=== PATIENT | female | born 1960 | race Caucasian/White ===

== ENCOUNTER 2025-06-01 14:32 | Outpatient (REF) | payer OTHER, SELFPAY ==
--- OUTSIDE RECORDS SUMMARY | 2023-12-04 03:30 | XMS_ITS | Continuity of Care Document ---
Author Organization [facility] Address [address] [place] [address] Dr [address] [place] [address] Phone Care Team Providers Care Soil Fertility Specialist Name Role Phone Peter GALLEGOS, PARVEEN, Will DOW Unavailable U navailable Procedures Procedure Date Offic Cons New/estab Mod-hi 60- CT & [place] Surgical Stockings Juxlite Knee 024 Duplex Scan-extrem Veins; Comp- CT & [place] Advance Directives Directive Yes / No Effective Date File Name No Information Encounters Encounter Description Practice Location Reason(s) For Visit Diagnoses Date Provider Providers Copied on Encounter Offic Cons New/estab Mod-hi 60- [place] & [place] [facility], [address] [place] [address] Dr Griggs [address], [id number], [place] tel:[phone] [facility] Chronic venous hypertension (idiopathic) with other complications of bilateral lower extremityLipoed maPain in right legPain in left legEssential (primary) hypertensionVen ous insufficiency (chronic) (peripheral)Loc alized edema 4 Peter GALLEGOS, PARVEEN, PALOMA [facility]. [address] [facility], [facility] [address], [place], [place], [id number] , [place]. tel: [phone] [facility], [address] [place] [address] Dr Griggs [address], [id number], [place] tel:[phone] [facility] Chronic venous hypertension (idiopathic) with other complications of bilateral lower extremity Peter GALLEGOS, PARVEEN, PALOMA [facility]. [address] [place] [address], [place], [id number] , . tel:[phone] Referring Provider: Will Green MD, PARVEEN, PALOMA, [address] [address], [place], [address] . tel:[phone] Family History Family Member Type Diagnosis Age At Onset No Information Payers Payer name Insurance type Covered democrat ID Authoriza tion(s) No Information Social History Type Description Quantity Date Captured Comments Alcohol Use Details Unknown Caffeine Use Details Unknown Tobacco Use Status Current non-smoker Smoking Status Never Smoker Non-Smoking Tobacco Use Details : No Details Available : No Details Available Sex Female Vital Signs Date / Time: Height Weight BMI Pulse Rate Blood Pressure Temperature Respiratory Rate Body Surface Area Head Circumference Head Circ. Percentile Wt./[place]. Percentile BMI percentile Pulse Ox Inhaled Ox 138.350 kg (305.00 lbs) 47.9 3 kg/m eter (2) 132/82 mm[Hg] Chief Complaint And Reason For Visit No Information Reason For Referral Reason For Referral No Information Plan Of Treatment Date Type Action Status Goal Diet education completed Referral Ordered: Weight management: Referral to physician timeframe: 3 Months (related to Body mass index (BMI) 45.0-49.9, adult) ordered History Of Present Illness Encounter Date Complaint History Of Prese nt Illness No Information Functional Status Date Functional Assessmen t No Information Instructions Date Instruction Additional Infor mation Pre and post instruc tions reviewed and provided Related to Chronic venous hypertension (idiopathic) with other complications of bilateral lower extremity Patient education booklet given Related to Chronic venous hypertension (idiopathic) with other complications of bilateral lower extremity Lifestyle education Related to B malgorzata mass index (BMI) 45.0-49.9, adult Giving Encouragement to exercise Related to Body mass index (BMI) 45.0-49.9, adult Diet education Related to Body mass index (BMI) 45.0-49.9, adult Assessments Type Assessment Date No Information Patient Care Teams Name Effective Dates (start - stop) Status Members No Information
--- NOTE | 2025-06-01 15:00 | EMG_ITS ---
Chief complaint: Right foot drop, falls Referred by:?Dana Fernandez MD Procedure done: Right lower extremity NCS/EMG Right peroneal and tibial motor studies were performed with F responses and tibial H-reflex. Right superficial peroneal and sural sensory studies were performed and median and lateral mixed plantars sensory studies were performed. EMG was performed. Findings: Motor amplitudes were jioa-ft-qkprhfrodb reduced. Peroneal amplitude further declined across fibular head with mild slowing of conduction velocity. Superficial peroneal and sural responses were absent. Median and lateral mixed plantars sensory studies were also absent. 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
== END 2025-06-01 14:33 | disposition home or self-care (01) ==
LOC: HO.NEURO 14:32
PROVIDERS: PCP Internal Medicine; Visit Provider Internal Medicine
DX: M21.371 Foot drop, right foot (principal); Z68.41 Body mass index [BMI] 40.0-44.9, adult
CPT/HCPCS: 95886; 95910

== ENCOUNTER → 2025-06-01 15:00 | Outpatient (BNV) | payer OTHER, SELFPAY | PROVIDERS: PCP Internal Medicine; Visit Provider Psychiatry & Neurology Neurology | DX: G57.81 Other specified mononeuropathies of right lower limb (principal) | CPT/HCPCS: 95886; 95909 ==

== ENCOUNTER 2025-06-23 15:36 | Outpatient (AMB) | payer OTHER, SELFPAY ==
--- NOTE | 2025-06-23 15:43 | A.OFFVIS_ITS ---
Intake Visit Reasons: abnoraml MRI HPI Comments Details: The patient is a 64 year old female presenting for evaluation of falls. She reports she began falling around 2019, following a knee replacement in 2017. The falls have become more frequent over the last year and a half, occurring about once or twice a month. She experiences a loss of balance but denies any preceding dizziness or syncope. She has not sustained any fractures but has difficulty getting up after a fall. Associated symptoms include tingling, occasional burning, and numbness in her feet and toes, particularly when barefoot. She also reports severe pain around her knee. Her surgical history is significant for bilateral knee replacements in 2016 and 2017, three cervical spine surgeries, and a major lower back surgery. Her medical history includes hypertension and blood clots in her lungs, for which she takes Eliquis. She denies a history of diabetes, heavy alcohol use, or chemotherapy. Her current medications include Celebrex 200 mg twice daily, Qsymia 7.5 mg once daily, Effexor 150 mg once daily, lisinopril 10 mg once daily, and Eliquis 5 mg. 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 Review of Systems Narrative - Neurological: Reports tingling, intermittent burning, and numbness in her feet and toes. - She also reports loss of balance and frequent falls. - Denies dizziness or loss of consciousness. - Musculoskeletal: Reports severe pain around her knee. - Cardiovascular: Denies heart disease. - General: Denies diabetes and does not drink alcohol. Physical Exam Neuro Other: Mental Status: Alert and oriented to person, place, and time. Normal attention. Normal spontaneous speech, fluency, and comprehension. No obvious issues with mood and memory. Affect is appropriate. Cranial Nerves: CN II: Visual issa full to confrontation, visual acuity intact. CN III, IV, : Pupils equal, round, reactive to light and accommodation. Extraocular movements are normal. CN V: Facial sensation is normal. CN VII: Facial movements symmetrical. CN VIII: Hearing intact to bedside conversation is normal. CN IX, X: Palate elevates symmetrically. CN XI: Shoulder shrug and head turn symmetrical. CN XII: Tongue midline without atrophy or fasciculations. Motor: Hyperflexion deformity of toes with muscle atrophy in feet. Leg muscles were impossible to see because of obesity. No fasciculations noted. Reflexes: Deep tendon reflexes were absent with flexor plantars. Coordination: Fbdgqe-dk-[id number] was okay. Gait and Station: Slow and cautious. Sensory: Vibration sensation absent in toes. Extrapyramidal: Full facial expressions and blinking. No rigidity. Movements are appropriate wit h no tremor or abnormality. Speech: Normal; no dysarthria or tremor. Assessment & Plan Assessment & Plan (1) Peripheral neuropathy: Code(s): G62.9 - Polyneuropathy, unspecified Category: Medical Qualifiers: Peripheral neuropathy type: idiopathic neuropathy, unspecified Qualified Code(s): G60.9 - Hereditary and idiopathic neuropathy, unspecified Plan Impression: a: Axonal moderate to severe peripheral neuropathy of unknown cause, could be genetic in origin b: Multifactorial risk for falling c: Significant obesity complicating her clinical picture Rec: a: Education b: Rebular use of cane or a walker c: Labs to r/o treatable cause of neuropathy d: Gabapentin 300mg one at bedtime for neuropathy related pain e: Aggressive management of obesity to lower her overall health risk especially risk of falling I discussed with the patient that her diagnosis is a chronic, likely genetic, axonal polyneuropathy. I explained that this condition is causing her symptoms of numbness, pain, and unsteadiness. I reassured her that an examination does not suggest ALS. I explained that her falls are multifactorial, resulting from a combination of her neuropathy, the lack of nerve receptors in her artificial knees, her history of back surgery, and her weight. We discussed the importance of fall prevention, and I recommended using a quad cane for better support. I informed her that while the neuropathy is a permanent condition, we can manage the symptoms. I prescribed a new medication for her to take at bedtime for pain relief, which should also assist with her sleep. I emphasized the need to remain active but to do so safely. I have ordered fasting labs for her to complete and have arranged for a follow- up visit in 4-6 weeks to review the results. A copy of my notes will be sent to her primary care physician, Dr. Muñoz. Orders: Orders Immunofixation Pnl, Serum Today G60.9 - Hereditary and idiopathic neuropathy, unspecified Basic Metabolic Panel Fasting Today G60.9 - Hereditary and idiopathic neuropathy, unspecified Vitamin B12 and Folate Today G60.9 - Hereditary and idiopathic neuropathy, unspecified Lyme IgG/IgM w/reflex to WB Today G60.9 - Hereditary and idiopathic neuropathy, unspecified Medications: New gabapentin 300 mg orally One at bedtime; 90 caps 0RF Coding Level of Care Code New Pt Level 4 (57740) Diagnoses Idiopathic peripheral neuropathy G60.9 Peripheral neuropathy type: idiopathic neuropathy, unspecified
== END 2025-06-23 16:16 | disposition home or self-care (01) ==
LOC: HO.HSM 15:37
PROVIDERS: PCP Internal Medicine; Visit Provider Psychiatry & Neurology Neurology
DX: G60.9 Hereditary and idiopathic neuropathy, unspecified (principal)
CPT/HCPCS: 99214